=== PATIENT | male | born 2000 | race Two or more races ===

== ENCOUNTER 2023-04-19 15:30 | Outpatient (CLI) | payer OTHER ==
--- NOTE | 2023-04-19 16:26 | Sleep Patient Instructions ---
Sleep Center Visit Summary - Patient Visit Information Reason for Visit: Initial consult for evaluation of sleep disordered breathing and other sleep issues. - Patient Instructions Instructions Attached: Sleep Study Home Monitor Additional Instructions: You will be completing a sleep study, either an in-lab polysomnography (PSG) or home sleep study (HST). You will follow-up in the sleep care office after the sleep study is completed to hear the results and talk about therapy, if needed. You will be called by our office staff to schedule this appointment, but you may contact us with any questions. - Clinic Information Contact: [facility] [address] [place] [address] [email or web address] T: [phone]
--- NOTE | 2023-04-19 16:28 | SLEEP CARE CONSULTATION ---
Information from patient questionnaire entered by Jerry Call. I have reviewed and concur with the information entered by Jerry Call. This document represents the service I personally performed and the decisions made by me, Liliana Sanches ARNP. History of Present Illness Service Date and Time: 04/19/2023 1530 Reason for Visit: New patient Chief Complaint: reports: Unrefreshed sleep, Snoring, Fatigue, Frequent awakenings at night Date of Onset: A YEAR Usual bedtime: 8PM Time it takes to fall asleep: 2-3HRS Snores at night: Yes Observed to quit breathing while asleep: No Sleeps alone due to snoring: No Number of times waking at night: 2-3 Reasons for waking at night: reports: Bathroom, Other (HOT FLASHES, NIGHTMARES) Toss, Turn, or Twitch while sleeping: Yes Recalls having dreams: Yes Usually gets out of bed at: 6AM Feels refreshed in the morning: No Morning headache: Yes Sleepy or fatigued during the day: Yes Ever fallen asleep while driving: Yes Takes day naps: No Dreams during day naps: Yes Prior sleep studies: No Additional HPI information: I had the pleasure of seeing ANIL BEAR today regarding the possibility of him having a sleep disorder. His current complaints are fatigue, frequent night awakenings, snoring, unrefreshed sleep, excessive daytime sleepiness and trouble falling asleep. He has trouble falling and staying asleep. He gets up to the restroom 2-3 times and has trouble falling back to sleep. He says his work has constant shift changes and he feels this is contributing to not sleeping well. He also has an infant, 4 months old, who wakes up throughout the night. His says he snores loudly. She has not ever told him that he stopped breathing at night. He will have vivid dreams and has hit out and hit his a couple times. He wakes up 2 times a week with a headache that resolves in 45 minutes to 1 hour. He does have some drowsy driving but denies any accidents. He says he cannot drive at night because the lights will cause him to have bad headaches. His says his leg twitches in his sleep. He has trouble with remembering names and has a hard time concentrating to read a book. - Parasomnia Symptoms Ever been unable to move upon waking from sleep: No Walks in sleep: No Talks in sleep: Yes Ever acted out dreams in sleep: Yes (hit out during vivid dreams) Ever felt weak in the knees when startled or emotional: Yes (has not fallen to ground) Bothered by creepy, crawly, restless sensations in legs: Yes Problems with memory or concentration: Yes (both) Subjective Initial [place] Sleepiness Scale score: 14 (04/17/23) Past Medical History Past Medical History: reports: Anxiety, Depression Social History The patient's occupation is a AM. Patient is and lives in . Have you smoked in the past 12 months: No Alcohol use: No Caffeine use: No Family History Family history of sleep disordered breathing: No Family Hx Sleep Apnea: Father: Snoring Allergies and Home Medications Known drug allergies: No Drug allergies reviewed: Yes Home medication list reviewed: Yes Allergy and home medication list: Home Medications Medication Instructions Recorded Confirmed Last Taken Type Acetaminophen [Tylenol] See Rx Instructions .ROUTE .COMPLEX 04/19/23 04/19/23 Unknown History Multivit,Calc,Min/FA/K1/Lycop [One See Rx Instructions .ROUTE .COMPLEX 04/19/23 04/19/23 Unknown History Daily Men's Multivitamin] Review of Systems Weight gain over past 5 years: 35 Cardiovascular: denies: high blood pressure Gastrointestinal: denies: heartburn Urinary: reports: frequency Neurological: reports: headaches Psychiatric: reports: anxiety, depression Ear/Nose/Throat: reports: wisdom teeth removed. denies: tonsillectomy Musculoskeletal: reports: joint pain, neck pain, back pain, mobility problems Physical Exam Vital signs obtained and entered by: JERRY Flanagan MA Blood Pressure: 126/72 (LEFT ARM) Cuff size: regular Heart Rate: 76 O2 Saturation: 98 Height: 6 ft 1.5 in Weight: 220 lb 12.8 oz Body Mass Index: 28.7 BMI Classification: Overweight Neck circumference: 16.5 Mouth and throat: narrow oropharynx Soft palate: long Hard palate: normal Uvula: long Uvula visualization: 25% Mallampati Class III Tongue: enlarged in size with teeth walsh on lateral edges Tonsils: small Neck: normal w/o lymphadenopathy or thyromegaly Heart: regular rate and rhythm Lungs: clear bilaterally Impression and Plan 1. Suspected Obstructive Sleep Apnea-Hypopnea Syndrome, as suggested by a history of loud and irregular snoring, morning headache, frequent awakening during the night, unrefreshed sleep, cognitive impairment, and excessive daytime sleepiness. Narrow oropharynx and obesity are common predisposing factors for obstructive sleep apnea-hypopnea syndrome. I recommend proceeding to polysomnography to confirm the diagnosis and to assess severity. If the patient has significant sleep disordered breathing, a manual CPAP titration study will also be performed to find the optimal treatment pressure. I informed the patient of what the sleep studies involve and after some discussion, obtained agreement to proceed. The pathophysiology of obstructive sleep apnea-hypopnea syndrome was discussed with the patient and health risks of cardiovascular and cerebrovascular disease if not treated. Risks of drowsy driving discussed in detail and patient advised to avoid long distance driving and to pipe puller at the first sign of drowsiness. Patient agreed to plan. * Schedule polysomnography +- manual CPAP titration study and return in 1-2 weeks after the study to discuss result and initiate therapy. * Avoid long distance driving or driving when feeling sleepy. * Avoid alcohol, sedative and muscle relaxant around bedtime. * Attempt to lose weight. * Review instructions provided by trained office staff on how to prepare for the sleep study. * Return for follow-up after sleep study completed. Counseling Topics: Weight loss health impact Plan: PSG/HST Visit Type: In Office Time Spent with Patient (minutes): 31 Provider Statement: I spent 100% of the Face to Face Visit with the patient with greater than 50% spent counseling the patient and coordination of care.
[2023-04-19 16:39] VITALS: BP 126/72; O2SAT 98
== END 2023-04-19 15:31 | disposition home or self-care (01) ==
LOC: SC 15:30
PROVIDERS: ATTEND Nurse Practitioner Family
DX: R06.83 Snoring (principal); R51.9 Headache, unspecified; G47.8 Other sleep disorders; R41.89 Other symptoms and signs involving cognitive functions and awareness; G47.10 Hypersomnia, unspecified; E66.3 Overweight; Z68.28 Body mass index [BMI] 28.0-28.9, adult
CPT/HCPCS: 99203; 99212

== ENCOUNTER 2023-04-25 12:10 | Outpatient (CLI) | payer OTHER | END 2023-04-25 12:11 | disposition home or self-care (01) | LOC: SC 12:10 | PROVIDERS: ATTEND Nurse Practitioner Family | DX: R09.02 Hypoxemia (principal) | CPT/HCPCS: 95806 ==

== ENCOUNTER 2023-05-05 14:40 | Outpatient (CLI) | payer OTHER ==
--- NOTE | 2023-05-05 14:57 | Sleep Patient Instructions ---
Sleep Center Visit Summary - Patient Visit Information Reason for Visit: Sleep study followup - Patient Instructions Additional Instructions: You will be completing a sleep study, either an in-lab polysomnography (PSG) or home sleep study (HST). You will follow-up in the sleep care office after the sleep study is completed to hear the results and talk about therapy, if needed. You will be called by our office staff to schedule this appointment, but you may contact us with any questions. - Clinic Information Contact: [facility] [address] [place] [address] [email or web address] T: [phone]
--- NOTE | 2023-05-05 15:01 | SLEEP CARE CONSULTATION ---
Information from patient questionnaire entered by Naye Call. I have reviewed and concur with the information entered by Naye Call. This document represents the service I personally performed and the decisions made by , Liliana Sanches ARNP. History of Present Illness Service Date and Time: 05/05/2023 1440 Initial [place] Sleepiness Scale score: 14 (04/17/23) Current [place] Sleepiness Scale score: 18 (05/05/23) Additional HPI information: ANIL BEAR returns for follow up and results of the recently performed home sleep study. The patient was informed of the following findings: No significant sleep disordered breathing with an average AHI of 2 and roselyn oxygen saturation of 86%. His study was fair to poor due to unreliable pulse oximetry signal. I explained the pathophysiology behind obstructive sleep apnea. Patient does not have sleep apnea and was advised how weight gain could increase the risk of developing sleep apnea in the future. I strongly encouraged the patient to lose weight. Patient has light snoring. Snoring can be reduced by weight loss. Weight loss is best achieved with diet consult. Patient instructed to contact PCP for referral. Snoring can also be treated with an oral appliance from a dentist. Advised to check insurance coverage. In addition, an ENT evaluation can be do to see if other treatment is indicated. Patient does not drink alcohol. Patient was cautioned about risks of drowsy driving until sleepiness symptoms resolve. Sleep Study - Results Type of Sleep Study: Home sleep study (COMPLETED 04/25/23) Prior sleep studies: No Polysomnography/Home Sleep Study results: Physician Impression: The quality of the study is [id number] due to unreliable pulse oximetry signal. The length of the study is adequate (> 240 minutes) but the patient appeared to be awake a good part of the night. Please also see the tabulated and graphic data. 1. No significant sleep disordered breathing, with an AHI of 2.0/hr and roselyn SaO2 of 86%. During the study, the patient had 7 apneas (7 obstructive, 0 central, 0 mixed) and 0 hypopneas. The longest episode lasted 21.0 seconds. The patient slept adequately in supine position (supine AHI was 2.2 and non-supine, 1.17). 2. Hypoxemia (ICD-10 R09.02), mild, with the lowest oxygen saturation of 86 % and 14.1 minutes with SaO2 under 90%. Baseline oxygen saturation was normal (Average oxygen saturation was 94%). Allergies and Home Medications Known drug allergies: No Drug allergies reviewed: Yes Home medication list reviewed: Yes (no changes) Allergy and home medication list: Allergies No Known Drug Allergies Allergy (Verified 05/05/23 09:58) Review of Systems Review of systems same as previous: Yes (NO CHANGE) Physical Exam Vital signs obtained and entered by: NAYE Flanagan MA Blood Pressure: 137/97 (LEFT ARM) Cuff size: long Heart Rate: 77 O2 Saturation: 100 Height: 6 ft 1.5 in Weight: 222 lb 9.6 oz Body Mass Index: 29.0 BMI Classification: Overweight Impression and Plan 1. Suspected Obstructive Sleep Apnea-Hypopnea Syndrome, as suggested by a history of loud and irregular snoring, morning headache, frequent awakening during the night, unrefreshed sleep, cognitive impairment, and excessive daytime sleepiness. His home study was a poor quality study due to loss of pulse oximeter signal. I want to have him repeat the sleep study in the lab so we can get a better quality study. He voiced understanding. I obtained agreement to proceed. The pathophysiology of obstructive sleep apnea-hypopnea syndrome was discussed with the patient and health risks of cardiovascular and cerebrovascular disease if not treated. Risks of drowsy driving discussed in detail and patient advised to avoid long distance driving and to pulling unit floorhand at the first sign of drowsiness. Patient agreed to plan. 2. Overweight, unspecified. Currently patients BMI is 29. Obesity increases the risk of apnea, CPAP pressure requirements and overall health risks especially cardiovascular and diabetes. Thus patient is advised to lose weight. * Schedule polysomnograph. * Avoid long distance driving or driving when feeling sleepy. * Attempt to lose weight. * Review instructions provided by trained office staff on how to prepare for the sleep study. * Return for follow-up after sleep study completed. Counseling Topics: Weight loss health impact Plan: PSG Visit Type: In Office Time Spent with Patient (minutes): 11 Provider Statement: I spent 100% of the Face to Face Visit with the patient with greater than 50% spent counseling the patient and coordination of care.
[2023-05-05 15:07] VITALS: BP 137/97; O2SAT 100
== END 2023-05-05 14:41 | disposition home or self-care (01) ==
LOC: SC 14:40
PROVIDERS: ATTEND Nurse Practitioner Family
DX: R06.83 Snoring (principal); R51.9 Headache, unspecified; G47.8 Other sleep disorders; G47.10 Hypersomnia, unspecified; R41.89 Other symptoms and signs involving cognitive functions and awareness; E66.3 Overweight; Z68.29 Body mass index [BMI] 29.0-29.9, adult
CPT/HCPCS: 99212